=== PATIENT | male | born 1985 | race Caucasian/White ===

== ENCOUNTER 2020-09-03 13:34 | Emergency (ER) | payer MEDICAID, SELFPAY ==
[2019-12-13 09:48] VITALS: BMI 22.2
[2020-09-03 13:34] VITALS: BP 126/76; PULSE 85; RESP 16; TEMP 36.6; O2SAT 99; BMI 22.8
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
[2020-09-03 17:09] VITALS: RESP 16
== END 2020-09-03 17:10 | disposition home or self-care (01) ==
LOC: ED 16:53
PROVIDERS: Emergency Provider Emergency Medicine; PCP Family Medicine
DX: S16.1XXA Strain of muscle, fascia and tendon at neck level, initial encounter (principal); Z87.891 Personal history of nicotine dependence; V43.51XA Car driver injured in collision with sport utility vehicle in traffic accident, initial encounter
CPT/HCPCS: 72125; 99282

== ENCOUNTER 2021-03-10 23:35 | Emergency (ER) | payer MEDICAID, SELFPAY ==
[2021-03-10 23:36] VITALS: BP 125/90; PULSE 97; RESP 16; TEMP 36.7; O2SAT 99; BMI 23.6
--- NOTE | 2021-03-10 23:45 | ED.VIS.DENTA ---
HPI History of Present Illness Chief Complaint: Dental Informant: patient Narrative Narrative: Patient presents with some dental pain. He states he had a root canal on tooth in the right upper jaw on this past Wednesday about 1 week ago. It started to get sore on . It was more sore today. He did call his dentist. He was prescribed an antibiotic to take 4 times a day that he just started late today. He does not know what antibiotic it was. He presents as it still sore and has not gotten better yet. It sounds like he is only taken 1 maybe 2 doses. No fevers chills. No nausea vomiting. No trouble swallowing. Nothing specifically makes this better or worse. PFSH PFSH Home Medications naproxen 500 mg PO BID #14 tab 03/10/21 [Rx Last Taken Unknown] Allergy/AdvReac Type Severity Reaction Status Date / Time sertraline HCl [From Zoloft] AdvReac Nausea Verified 03/10/21 23:39 Social History Smoking Status: Current every day smoker tobacco type: cigarettes ROS ROS ED Constitutional Constitutional ED: Denies chills or fever(s) ENT ENT ED: Reports other Details: See history of present illness. ; Denies ear pain, rhinorrhea or sore throat Cardiovascular Cardiovascular: Denies chest pain Respiratory/Chest Respiratory/Chest: Denies cough or sputum Gastrointestinal Gastrointestinal: Denies nausea or vomiting Musculoskeletal Musculoskeletal: Denies arthralgias or myalgias Integumentary Denies rash Neurologic Neurologic: Denies headache(s) Endocrine Endocrinology: Denies polydipsia or polyuria Hematologic/Lymphatic Hematologic/Lymphatic: Denies easy bleeding or easy bruising Allergic/Immunologic Allergic/Immunologic ED: Denies urticaria EXAM Physical Exam Const Vital Signs: 03/10/21 23:36 Temperature 98.1 F Temperature Source Temporal Pulse Rate 97 Respiratory Rate 16 Blood Pressure 125/90 H Blood Pressure Mean 101 Pulse Ox 99 Oxygen Delivery Method Room Air Positive well nourished and well developed General Appearance ED: well developed and NAD; Negative for pallor HEENT HEENT Narrative: There may be some very subtle fullness of the right side of his face. This is minimal. There is no erythema. No notable tenderness. No intranasal lesion. No pain with range of motion of the eyes. He does have a newer feeling right upper jaw. He has some dental tenderness. No notable abscess or swelling in the mouth. Voice is normal. Handling secretions are normal. Negative for trauma Eyes PERRL and EOMs intact bilaterally Neck no lymphadenopathy and supple Lymph Lymphatic: no lymphadenopathy noted Chest Wall inspection of chest normal Resp normal respiratory effort Neuro Sensorium / Orientation: alert Psych mental status grossly normal Skin no rashes or lesions noted General Skin Exam: Negative for pallor MDM MDM MDM Narrative Medical decision making narrative: I explained to the patient that he just started antibiotics hours ago. This is not going to resolve quickly will take several days. There is no indication of need for drainage or imaging. I will get him nonsteroidals for discomfort. He should continue his antibiotics 4 times a day as prescribed and follow-up with his dentist. If he has further swelling, pain, trouble swallowing or speaking he should return. Discharge Plan Triage Chief Complaint: Dental ED Provider: Sunil Hamm Dx/Rx/DC Orders Clinical Impression: Pain, dental Instructions: ED Dental Pain Prescriptions: New naproxen 500 MG tablet 500 mg PO BID Qty: 14 RF: 0 Primary Care Provider: Aron Lombardi Referrals: Aron Lombardi MD [Primary Care Provider] - As Needed Activity Restrictions/Additional Instructions: Follow-up with your dentist as soon as possible for recheck. Disposition Disposition: Home, Self Care
[2021-03-10] MEDS: Naproxen 250 MG Tablet 500 MG PO (23:59)
== END 2021-03-11 | disposition home or self-care (01) ==
PROVIDERS: Emergency Provider Emergency Medicine; PCP Family Medicine; Visit Provider Emergency Medicine
DX: K08.89 Other specified disorders of teeth and supporting structures (principal); F17.210 Nicotine dependence, cigarettes, uncomplicated; Z98.818 Other dental procedure status
CPT/HCPCS: 99283

== ENCOUNTER 2021-12-11 11:01 | Emergency (ER) | payer MEDICAID, SELFPAY ==
[2021-12-11 11:02] VITALS: BP 123/97; PULSE 89; RESP 16; TEMP 36.6; O2SAT 100; BMI 24.3
--- NOTE | 2021-12-11 11:30 | EDS_ITS ---
HPI History of Present Illness Chief Complaint: Lower Extremity Injury Informant: patient Narrative Narrative: Patient present persistent worsening left knee pain in past 2 to 3 weeks. Initial injury hitting a barstool. He states he went to urgent care had an x- ray however does not know the results. Has been using Tylenol and ibuprofen last treat with ibuprofen 6 AM this morning. Symptoms worse throughout the day due to being on his feet and working. He had to leave work today. No new injuries. No paresthesias. Symptoms also worsen when he tries to sit down along the medial aspect of the anterior knee. Denies any head injuries. Denies past med history. Denies history of gastric ulcers or kidney injury. PFSH PFSH Home Medications NK 12/11/21 [History Last Taken Unknown] Allergy/AdvReac Type Severity Reaction Status Date / Time sertraline HCl [From Zoloft] AdvReac Nausea Verified 12/11/21 11:04 Surgical History History of repair of ACL Social History Smoking Status: Current every day smoker tobacco type: cigarettes ROS ROS ED Constitutional Constitutional ED: Denies chills, fever(s) or sweats Eyes Eyes: Denies change in vision ENT ENT ED: Denies dysphagia or sore throat Cardiovascular Cardiovascular: Denies chest pain, leg edema, palpitations or racing heartbeat Respiratory/Chest Respiratory/Chest: Denies cough, dyspnea or dyspnea on exertion Gastrointestinal Gastrointestinal: Denies abdominal pain, diarrhea, nausea or vomiting Genitourinary Genitourinary ED: Denies dysuria, hematuria or urinary frequency Musculoskeletal Musculoskeletal: Reports extremity pain and other Details: Left knee pain ; Denies back pain or neck pain Integumentary Denies rash or wounds Neurologic Neurologic: Denies headache(s), paresthesias or weakness EXAM Physical Exam Const Vital Signs: 12/11/21 11:02 Temperature 98 F Temperature Source Temporal Pulse Rate 89 Respiratory Rate 16 Blood Pressure 123/97 H Blood Pressure Mean 105 Pulse Ox 100 Oxygen Delivery Method Room Air Positive well nourished and well developed General Appearance ED: well developed and NAD HEENT Reports moist mucous membranes normocephalic and atraumatic Eyes PERRL, EOMs intact bilaterally and conjunctivae normal General Eye ED: Yes normal appearance of both eyes Neck no lymphadenopathy and supple General: Negative for tenderness Chest Wall Chest: Negative for tenderness Resp normal respiratory effort and normal air movement Effort and Inspection: symmetric chest movement; Negative for respiratory distress Cardio regular rate, regular rhythm and no murmurs Peripheral Pulses: pulses 2+ throughout GI normal to inspection, nondistended, normoactive bowel sounds and non-tender Palpation: Negative for guarding or rebound tenderness present Back/Spine no CVA tenderness and no thoracic nor lumbar tenderness Extremity normal to inspection Extremity Narrative: Left lower extremity negative logroll knee extensor mechanism intact. No patellar tenderness. Is tender along the medial aspect the patellar. Negative varus and valgus negative Xin's. Skin intact. No deformities. Neuro vas intact distally. General Extremety ED: Negative for edema or tenderness General Extremity: Negative for edema Neuro oriented x3 and no sensory deficits noted Sensorium / Orientation: awake and alert Skin no rashes or lesions noted and no wounds MDM MDM MDM Narrative Medical decision making narrative: Patient vital stable. There is no x-ray in the system and he does not know the results. 4 view x-ray left knee ordered for evaluation Tylenol for symptom control. 4 view x-ray left knee evaluated by myself and read by radiology shows no acute process. Minesh wrap provided. Continue Tylenol or Motrin as needed. He is given follow-up orthopedics due to persistent symptoms after 3 weeks. All questions were answered. Radiography Diagnostic Testing: Clinical Impression(s) from Imaging Studies Knee X-Ray 12/11/21 11:36 IMPRESSION: Normal x-ray examination of the knee. Electronically Signed: Alton Maldonado MD at 11:55 EDT Reading Location ID and State: [facility] / [place] , Service support , Discharge Plan Triage Chief Complaint: Lower Extremity Injury ED Provider: Gilbert Rivas Dx/Rx/DC Orders Clinical Impression: Injury of knee, left, Knee pain, left Instructions: ED Knee Pain of Uncertain Cause Prescriptions: No Action NK Primary Care Provider: Aron Lombardi Referrals: Aron Lombardi MD [Primary Care Provider] - Marcial Kwon MD [Med Staff - Active Staff] - 3-5 Days Activity Restrictions/Additional Instructions: Left knee x-ray negative. Persistent symptoms after 3 weeks. Follow-up with Dr. Kwon. Continue Tylenol and ibuprofen. Minesh wrap continue crutches at home as needed. Disposition Disposition: Home, Self Care Discharge Date/Time: 12/11/21 12:16
--- NOTE | 2021-12-11 11:36 | RAD_ITS ---
STUDY: X-RAY - LEFT KNEE REASON FOR EXAM: Male, 36 years old. Pain after fall TECHNIQUE: 4 view(s) of the knee. COMPARISON: None. FINDINGS: Normal visualized distal femur. Normal visualized proximal tibia and fibula. Normal proximal tibiofibular articulation. Normal medial femorotibial compartment. Normal lateral femorotibial compartment. Normal patellofemoral articulation. The soft tissue structures are unremarkable. RAD/Knee 4 or More Views IMPRESSION: Normal x-ray examination of the knee. Electronically Signed: Alton Maldonado MD at 11:55 EDT ,
[2021-12-11] MEDS: Acetaminophen 500 MG Tablet 1000 MG PO (11:48)
== END 2021-12-11 12:16 | disposition home or self-care (01) ==
PROVIDERS: Emergency Provider Emergency Medicine; PCP Family Medicine; Visit Provider Emergency Medicine
DX: S89.92XA Unspecified injury of left lower leg, initial encounter (principal); W22.09XA Striking against other stationary object, initial encounter; F17.210 Nicotine dependence, cigarettes, uncomplicated
CPT/HCPCS: 73564; 99283

== ENCOUNTER → 2021-12-16 | Outpatient (CLI) | payer MEDICAID, SELFPAY ==
--- NOTE | 2021-12-16 15:50 | MRI_ITS ---
STUDY: MR Knee W/O Contrast 12/16/2021 8:13 PM REASON FOR EXAM: Male, 36 years old. assess for medial meniscus tear LEFT knee TECHNIQUE: Standardized fat and water weighted pulse sequences were obtained in all 3 orthogonal planes. COMPARISON: None. FINDINGS: Normal medial meniscus. Normal hyaline cartilage of the medial femorotibial compartment. Normal medial femoral condyle and tibial plateau. Normal medial collateral ligamentous complex (MCL). Normal distal semimembranosus, gracilis and semitendinosus tendons. Normal lateral meniscus. Normal hyaline cartilage of the lateral femorotibial compartment. Normal lateral femoral condyle and tibial plateau. Normal proximal tibiofibular articulation. Normal lateral collateral (fibular) ligament. Normal popliteus tendon. Normal biceps femoris tendon. Normal anterior cruciate ligament (ACL). Normal posterior cruciate ligament (PCL). Normal congruent patellofemoral articulation. Normal hyaline cartilage of the patellofemoral compartment. There is a partial tear of the medial parapatellar retinaculum at its insertion into the patella. There is a bone bruise along the medial patella. Normal quadriceps tendon. Normal patellar tendon. Normal Hoffa''s fat pad. There is a moderate volume joint effusion. The soft tissues are unremarkable. The otherwise visualized osseous structures are unremarkable. MRI/Lower Ext Joint Only (Routine) IMPRESSION: There is a partial tear of the medial parapatellar retinaculum at its insertion into the patella. There is a bone bruise along the medial patella. Joint effusion. Electronically Signed: Rolf Woods MD at 20:18 EDT ,
== END | disposition home or self-care (01) ==
LOC: MRI 15:49
PROVIDERS: PCP Family Medicine; Visit Provider Orthopaedic Surgery Sports Medicine
DX: S83.242A Other tear of medial meniscus, current injury, left knee, initial encounter (principal); X58.XXXA Exposure to other specified factors, initial encounter
CPT/HCPCS: 73721

== ENCOUNTER 2021-12-31 09:28 | Outpatient (RCR) | payer MEDICAID, SELFPAY ==
--- NOTE | 2021-12-31 10:12 | HP.PTEVAL ---
Patient's Visit Information LIBBY PEARCE II is a 36 year old M referred to Physical Therapy by Dr. Marcial Kwon MD with a diagnosis of L patellofemoral instabillity.. Date of Evaluation: 12/31/21 Physical Therapist: Tay Tinsley, DPT, OCS, CSCS - Visit Plan Frequency: 3x /Week Duration: 4-6 Weeks Plan: 3x/week for 3-6 for .. 1/ rollout and stretch L quad and ITB and HS. 2. strength L hip and quad/vmo and progress to HEP. ice as needed. rest from aggravating activity. - Subjective L knee hit on a barstool 6 weeks ago and is painful with moving and bending since. had previously fixed l meniscus 8 yrs ago but was doing well. Now pain with cold weather or overdoing it. Pain is medial and up to 8/10 over the weekend with lifting something and was transient. Feels comfortable at rest. Sleep is Ok most of time. Not employed. 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 No numbness or tingling. No regular ex. Walking makes it feel better. Bowling is more painful and he is in a league. - Pain L knee medial Pain Intensity (Out of 10): 0 Pain Intensity Range: 0, 8 - Objective Walks normal and I into PT, steps reciprocal with c/o pain on L with WB but no antalgia. Transfers are I bed and chair. Squatting hurts L medial knee at about 30 degree flexion but can full stoop with less pain. Tender over medial pes anserine and tib femoral joint minimally. Tender lateral patella minimally. Full aROM B knees without pain. Full hip AROM outside of flex deficits. Full ankle aROM B. Tightness obvious in L HS at -35 90/90 test, B quads tight and B ITB min tight. reflexes 2/3 patella and achilles. Sterngth is 4- in B hips and L quad with some discomfort, R quad and B HS are 4+, ankles 4+. Sensation LE WNL to gross light touch. - ant drawer. - post sag. - scour. - patellar grind. - bounce home. - Balance/Special Test Scores Lower Extremity Functional Score: 52 - Goals Goal 1:: Patient able to walk and squat down without discomfort Goal Time Frame: 4-6 Weeks Goal 2:: pt I in managemnt of pain with streteches and strength ex at home Goal Time Frame: 4-6 Weeks Goal 3:: Pt feel 90% better overall and 1/10 pain at worst Goal Time Frame: 4-6 Weeks Goal 4:: [id number] Goal Time Frame: 4-6 Weeks Goal 5:: Play with kids without needing to stop Goal Time Frame: 4-6 Weeks - Rehabilitation Potential Physical Therapy Diagnosis: bone bruise and PF instability Rehabilitation Potential: Good - Anticipated Interventions Patient/Client Instruction: Educate patient on: Condition, Plan of Care For the Purpose of:: To decrease pain, To improve nutrient delivery to tissue, To improve muscle performance and motor function, To increase tolerance to activity/condition/position, To improve ability of physical actions for home/community/work/leisure Therapeutic Exercise to Include: Strength training, Flexibilty training, Passive ROM, Active ROM For the Purpose of:: To decrease pain, To increase ROM, To increase oxygenation perfusion, To improve performance and independence with ADL's, To decrease level of supervision to perform tasks Manual Therapy Techniques to Include: Passive ROM, Soft tissue mobilization For the Purpose of:: To decrease pain, To improve nutrient delivery to tissue, To improve muscle performance and motor function Cryotherapy (ice pack, ice massage): Yes For the Purpose of:: To decrease swelling/inflammation Thank you for the opportunity to evaluate your patient. For Medicare and Medicare HMO plans, please review the plan of care and approve it. It will need to be FAXED BACK to us at [phone] for Medicare purposes. For Medicare only, by signing this I certify the plan of care. Please let me know if there are questions or concerns regarding this plan of care. Physician Signature: Date:
--- NOTE | 2022-03-05 17:50 | HP.PTDCNRP_ITS ---
LIBBY PEARCE II was seen in my office for initial evaluation on 12/31/21. The following Plan of Care was established for this patient: Initial Frequency: 3x /Week Initial Duration: 4-6 Weeks Patient/Client Instruction: Educate patient on: Condition, Plan of Care For the Purpose of:: To decrease pain, To improve nutrient delivery to tissue, To improve muscle performance and motor function, To increase tolerance to activity/condition/position, To improve ability of physical actions for home/community/work/leisure Therapeutic Exercise to Include: Strength training, Flexibilty training, Passive ROM, Active ROM For the Purpose of:: To decrease pain, To increase ROM, To increase oxygenation perfusion, To improve performance and independence with ADL's, To decrease level of supervision to perform tasks Manual Therapy Techniques to Include: Passive ROM, Soft tissue mobilization For the Purpose of:: To decrease pain, To improve nutrient delivery to tissue, To improve muscle performance and motor function Cryotherapy (ice pack, ice massage): Yes For the Purpose of:: To decrease swelling/inflammation This patient was last seen in our office 12/31/21. Pertinent comments regarding their Physical therapy will appear below: Pt seen for IE and POC established and approved. Pt did not return calls to schedule appointments. At this point, it has been over 2 months and I will discontinue due to nonattendance. At this point I will be discontinuing this patient from physical therapy. I wo uld be happy to see this patient again in the future if found appropriate by the physician. Thank you! Tay Tinsley, DPT, OCS, CSCS Balance/Gait/Functional tests - Balance/Special Test Scores Lower Extremity Functional Score: 52
== END 2021-12-31 19:00 | disposition home or self-care (01) ==
LOC: PT 09:28
PROVIDERS: PCP Family Medicine; Referring Provider Orthopaedic Surgery Sports Medicine; Visit Provider Orthopaedic Surgery Sports Medicine
DX: M25.362 Other instability, left knee (principal)
CPT/HCPCS: 97110; 97161

== ENCOUNTER 2022-03-24 01:11 | Emergency (ER) | payer MEDICAID, SELFPAY ==
[2022-03-24 01:12] VITALS: BP 134/92; PULSE 85; RESP 18; TEMP 37.1; O2SAT 99; BMI 23.6
--- NOTE | 2022-03-24 01:35 | EDS_ITS ---
HPI History of Present Illness Chief Complaint: General Illness Informant: patient Narrative Narrative: Patient complains of a few different issues. 1 is that he woke up the other morning and the small and ring finger on his left hand seem numb for a while. As he moved around it got better. That is only happened 1 time. He is also been complaining that his joints both wrists elbows knees and ankles have been sore recently. He thinks has been going on for a while but may be worse recently. He denies any acute trauma. They have not been swelling or getting red. No fevers or chills. No acute trauma. He is on no medications at this time. He has no history of any rheumatologic issues. He does not seem to complain of anything matching Raynaud's syndrome. Nothing really makes this better or worse but nothing is really been tried. [facility] Medical History Instability of left patellofemoral joint Tear of medial meniscus of left knee Home Medications NK 12/11/21 [History Last Taken Unknown] Allergy/AdvReac Type Severity Reaction Status Date / Time sertraline HCl [From Zoloft] AdvReac Nausea Verified 12/22/21 10:20 Surgical History History of repair of ACL Social History Smoking Status: Current every day smoker tobacco type: cigarettes ROS ROS ED Constitutional Constitutional ED: Denies chills or fever(s) Eyes Eyes: Denies change in vision ENT ENT ED: Denies rhinorrhea or sore throat Cardiovascular Cardiovascular: Denies chest pain or palpitations Respiratory/Chest Respiratory/Chest: Denies cough or dyspnea Gastrointestinal Gastrointestinal: Denies nausea or vomiting Genitourinary Genitourinary ED: Denies hematuria Musculoskeletal Musculoskeletal: Reports arthralgias; Denies back pain, myalgias or neck pain Integumentary Denies abscess, Abrasions or rash Neurologic Neurologic: Denies headache(s), paresthesias or weakness Endocrine Endocrinology: Denies polydipsia or polyuria Hematologic/Lymphatic Hematologic/Lymphatic: Denies lymphadenopathy Allergic/Immunologic Allergic/Immunologic ED: Denies urticaria EXAM Physical Exam Narrative Exam Narrative: Patient is alert oriented no acute distress sitting comfortably in bed. HEENT shows no pallor. Mucous membranes are moist. No sinus tenderness. Eyes show no pallor or icterus. Neck free range of motion without pain. No JVD seen. Lungs are clear bilaterally Heart is regular without murmur gallop or rub. He has excellent peripheral pulses. Abdomen soft completely nontender. Extremities: No sign of swollen or red joints. Good range of motion of all his joints. No sign of infection or inflammation. He does have a positive Tinel's when I tap on the ulnar nerve near the left elbow reproducing some of the symptoms he had the other night when he woke up. This is consistent with just mild peripheral neuropathy that was transient. No erosions or breakdown of the nails. Skin: No rash. Patient awake alert appropriate no confusion. No focal numbness or tingling. Const Vital Signs: 03/24/22 01:12 03/24/22 01:17 Temperature 98.7 F Temperature Source Oral Pulse Rate 85 Respiratory Rate 18 Respiratory Effort Normal Non-Labored Respiratory Pattern Normal Blood Pressure 134/92 H Blood Pressure Mean 106 Pulse Ox 99 Oxygen Delivery Method Room Air MDM MDM MDM Narrative Medical decision making narrative: Patient presents with polyarthralgias that sound like they have been going on a while but have worsened recently. I explained to the patient that this really needs an extensive work-up that cannot be done in the emergency department. He will need rheumatologic and other testing. It is best to follow-up with his primary physician to initiate this process. I will give him a dose of Decadron here to try to calm down his symptoms. He also complained of some numbness tingling of his left ring and small finger. I think this likely was from slight neuropraxia and irritation of the ulnar nerve at the elbow while sleeping. Those symptoms are completely resolved. If he did develop fever or swollen joint weakness he should return. Discharge Plan Triage Chief Complaint: General Illness ED Provider: Sunil Hamm Dx/Rx/DC Orders Clinical Impression: Polyarthralgia, Ulnar nerve compression Instructions: ED Arthralgia Prescriptions: No Action NK Primary Care Provider: Aron Lombardi Referrals: Aron Lombardi MD [Primary Care Provider] - 3-5 Days Disposition Disposition: Home, Self Care
[2022-03-24] MEDS: dexAMETHasone 4 MG Tablet 10 MG PO (01:49)
== END 2022-03-24 01:51 | disposition home or self-care (01) ==
LOC: ED 01:48
PROVIDERS: Emergency Provider Emergency Medicine; PCP Family Medicine; Visit Provider Emergency Medicine
DX: G56.22 Lesion of ulnar nerve, left upper limb (principal); M25.531 Pain in right wrist; M25.532 Pain in left wrist; M25.521 Pain in right elbow; M25.522 Pain in left elbow; M25.561 Pain in right knee; M25.562 Pain in left knee; M25.571 Pain in right ankle and joints of right foot; M25.572 Pain in left ankle and joints of left foot; F17.210 Nicotine dependence, cigarettes, uncomplicated
CPT/HCPCS: 99283

== ENCOUNTER 2022-05-12 18:21 | Emergency (ER) | payer MEDICAID, SELFPAY ==
[2022-05-12 18:22] VITALS: BP 140/99; PULSE 88; RESP 18; TEMP 36.1; O2SAT 100; BMI 23.9
--- NOTE | 2022-05-12 18:35 | CT_ITS ---
STUDY: CT ABDOMEN AND PELVIS WITH CONTRAST REASON FOR EXAM: Male, 36 years old. abdominal pain -- IV PO Contrast RADIATION DOSAGE (If Supplied By Facility): CTDIvol = ( 12.46 ) mGy, DLP = ( 605.38 ) mGycm TECHNIQUE: Transaxial images were obtained from the dome of the diaphragm to the symphysis pubis without oral contrast. Oral and amp; IV Gastrografin and amp; 100mL Isovue-370 was administered. Sagittal and coronal images were reconstructed. Individualized dose optimization techniques were used for this CT. COMPARISON: None. FINDINGS: Minor atelectasis within the dependent portion of the lungs.. The visualized portions of the heart are within normal limits. Normal liver. Contracted thick-walled gallbladder without gallstones of uncertain significance possibly physiologic.. Normal spleen. Pancreas is normal in size and homogeneous attenuation. Is effacement of the pancreaticoduodenal fat plane and possibly mild focal acute pancreatitis is not excluded. Normal bilateral adrenal glands. Normal right kidney. Normal left kidney. Normal visualized stomach. Normal small intestine. Normal colon. No evidence for acute appendicitis Normal abdominal aorta. Normal inferior vena cava. Normal retroperitoneum. Normal urinary bladder. Mildly enlarged prostate of uncertain clinical significance Normal abdominal wall. Normal osseous structures. CT/Abdomen/Pelvis WITH Contrast IMPRESSION: Contracted thick-walled gallbladder without gallstones. If concern for gallbladder disease ultrasound recommended Effacement of the pancreaticoduodenal fat plane of uncertain significance but may be consistent with mild changes of acute pancreatitis clinical correlation recommended Electronically Signed: Aron Tafoya MD at 20:34 EDT ,
--- NOTE | 2022-05-12 18:38 | ED.VIS.GI ---
HPI HPI - GI History of Present Illness Chief Complaint: GI Bleed Detail of Chief Complaint: Rectal bleeding Informant: patient Narrative Narrative: Patient presents to the emergency department with complaint of rectal bleeding for about a week. Patient states initially he had some dark red stool and subsequently has had bright red blood per rectum. Tells me he had a colonoscopy and an EGD 1 year ago and he was told he had an ulcer. Patient is complaining of right sided lower abdomen pain. There is a family history of inflammatory bowel disease on his mother side. Patient denies any fevers. He has had some mild nausea. The stool is now somewhat liquidy and bloody. Denies eating any undercooked foods. [facility] Medical History Instability of left patellofemoral joint Tear of medial meniscus of left knee Home Medications omeprazole 40 mg capsule,delayed release 40 mg PO DAILY #14 caps 05/12/22 [Rx Last Taken Unknown] Allergy/AdvReac Type Severity Reaction Status Date / Time sertraline HCl [From Zoloft] AdvReac Nausea Verified 05/12/22 18:24 Surgical History History of repair of ACL Social History Smoking Status: Current every day smoker tobacco type: cigarettes ROS ROS ED Review of Systems ROS Unobtainable: other Constitutional Constitutional ED: Reports lethargy; Denies chills, fever(s), sweats or weight loss Eyes Eyes: Denies blurry vision, change in vision or diplopia ENT ENT ED: Denies rhinorrhea or sore throat Cardiovascular Cardiovascular: Denies chest pain, orthopnea or racing heartbeat Respiratory/Chest Respiratory/Chest: Denies cough, dyspnea, dyspnea on exertion, orthopnea or sputum Gastrointestinal Gastrointestinal: Reports abdominal pain, nausea and other Details: Bright red blood per rectum ; Denies diarrhea or vomiting Genitourinary Genitourinary ED: Denies dysuria, hematuria or urinary frequency Musculoskeletal Musculoskeletal: Denies arthralgias, back pain, myalgias or neck pain Integumentary Denies abscess, Abrasions or rash Neurologic Neurologic: Denies headache(s) or weakness Psychiatric Psychiatric: Denies anxiety, depression or suicidal thoughts Endocrine Endocrinology: Denies polydipsia, polyphagia or polyuria Hematologic/Lymphatic Hematologic/Lymphatic: Denies easy bleeding, easy bruising or lymphadenopathy Allergic/Immunologic Allergic/Immunologic ED: Denies mouth swelling, tongue swelling or urticaria EXAM Physical Exam Const Vital Signs: 05/12/22 18:22 05/12/22 19:29 Temperature 97 F L Temperature Source Temporal Pulse Rate 88 Respiratory Rate 18 Blood Pressure 140/99 H Blood Pressure Mean 112 Pulse Ox 100 99 Oxygen Delivery Method Room Air Room Air Positive well nourished and well developed General Appearance ED: well developed and NAD HEENT Reports TM's clear and moist mucous membranes normocephalic and atraumatic; Negative for trauma or tenderness Tympanic Membrane ED: Yes TM's clear Eyes PERRL and EOMs intact bilaterally General Eye ED: Negative for pale conjunctiva or scleral icterus Neck no lymphadenopathy, supple and no JVD General: Negative for tenderness Chest Wall inspection of chest normal and palpation of chest normal Chest: Negative for tenderness Resp normal respiratory effort and clear to auscultation bilaterally Effort and Inspection: Negative for respiratory distress or pain with movement Auscultation: Negative for rhonchi, wheezes or diminished lung sounds Cardio regular rate, regular rhythm, S1 normal heart sound, S2 normal heart sound and no murmurs Peripheral Pulses: pulses 2+ throughout GI normal to inspection, nondistended, normoactive bowel sounds, soft to palpation, non-distended and no masses GI Narrative: Tenderness and some guarding in the right lower quadrant. No rebound or rigidity. Rectal exam performed had small amount of brown stool that did not show any gross blood and Hemoccult will be pending. No masses palpated in the rectal vault. Back/Spine no CVA tenderness and no thoracic nor lumbar tenderness Extremity normal to inspection General Extremety ED: Negative for edema General Extremity: Negative for edema Neuro oriented x3, CN's II-XII intact bilaterally, no sensory deficits noted and gait normal Sensorium / Orientation: awake, alert, oriented to person, oriented to place and oriented to time Motor Exam: strength 5/5 throughout and strength abnormal Psych mental status grossly normal Skin no rashes or lesions noted and no wounds MDM MDM MDM Narrative Medical decision making narrative: Patient presents with rectal bleeding x1 week. IV line established. Patient also with right lower quadrant pain. CBC with differential white count of 10.1 and a hemoglobin of 14 and hematocrit of 43.6. Platelets 242. Chemistries unremarkable. Lactate was normal 1.4. CT scan of the abdomen pelvis showed a contracted thick-walled gallbladder without gallstones. There was some haziness around the pancreas that could be consistent with acute pancreatitis. Clinically the patient does not have acute pancreatitis but I did order lipase and it was normal. LFTs were normal. I also performed a gallbladder ultrasound as patient states that he has had some gallbladder issues in the past and this essentially did not show any gallstones or evidence for acute cholecystitis. I did discuss case with general surgeon Dr. Laci Savage who is patient's surgeon of record. He has that we have patient call his office and they will schedule him for possible colonoscopy and EGD. Patient will be given a prescription for omeprazole which she is supposed to be taking but has not been taking. Patient advised to return if worsening abdominal pain, persistent bleeding with clots, diaphoresis, exertional dyspnea, or condition should worsen anyway. Lab Data Attestation: I reviewed the patient's lab results. Labs: Laboratory Results - last 24 hr 05/12/22 05/12/22 05/12/22 19:15 19:15 19:15 WBC 10.1 RBC 4.80 Hgb 14.3 Hct 43.6 MCV 90.8 MCH 29.8 MCHC 32.8 RDW Std Deviation 44.5 H RDW Coeff of [place] 13.2 Plt Count 242 MPV 10.7 Immature Gran % (Auto) 0.400 Neut % (Auto) 64.2 Lymph % (Auto) 30.1 [place] % (Auto) 3.8 Eos % (Auto) 1.2 Baso % (Auto) 0.3 Absolute Neuts (auto) 6.5 Absolute Lymphs (auto) 3.03 Nucleated RBC % 0 Sodium 145 Potassium 3.4 L Chloride 112 H Carbon Dioxide 27.0 Anion Gap 6 BUN 10 Creatinine 1.15 Estim Creat Clear Calc 88.80 Est GFR (MDRD) Af Amer 92 Est GFR (MDRD) Non-Af 76 BUN/Creatinine Ratio 8.7 L Glucose 115 H Lactic Acid 1.4 Calcium 8.1 L Total Bilirubin Direct Bilirubin AST ALT Alkaline Phosphatase Total Protein Albumin Globulin Lipase Blood Type Antibody Screen 05/12/22 05/12/22 05/12/22 19:15 19:15 19:15 WBC RBC Hgb Hct MCV MCH MCHC RDW Std Deviation RDW Coeff of [place] Plt Count MPV Immature Gran % (Auto) Neut % (Auto) Lymph % (Auto) [place] % (Auto) Eos % (Auto) Baso % (Auto) Absolute Neuts (auto) Absolute Lymphs (auto) Nucleated RBC % Sodium Potassium Chloride Carbon Dioxide Anion Gap BUN Creatinine Estim Creat Clear Calc Est GFR (MDRD) Af Amer Est GFR (MDRD) Non-Af BUN/Creatinine Ratio Glucose Lactic Acid Calcium Total Bilirubin 0.60 Direct Bilirubin 0.17 AST 21 ALT 23 Alkaline Phosphatase 69 Total Protein 6.8 Albumin 3.6 Globulin 3.2 Lipase 100 Blood Type AB POSITIVE Antibody Screen NEGATIVE Radiography Diagnostic Testing: Clinical Impression(s) from Imaging Studies Abdomen/Pelvis CT 05/12/22 18:35 IMPRESSION: Contracted thick-walled gallbladder without gallstones. If concern for gallbladder disease ultrasound recommended Effacement of the pancreaticoduodenal fat plane of uncertain significance but may be consistent with mild changes of acute pancreatitis clinical correlation recommended Electronically Signed: Aron Tafoya MD at 20:34 EDT , Gallbladder Ultrasound 05/12/22 20:47 IMPRESSION: No evidence for gallstones or acute inflammation.. Tiny gallbladder polyp. If concern for acalculous cholecystitis HIDA scan with CCK stimulation recommended Electronically Signed: Aron Tafoya MD at 21:31 EDT , Discharge Plan Triage Chief Complaint: GI Bleed ED Provider: Leonidas Knutson Dx/Rx/DC Orders Clinical Impression: Acute lower gastrointestinal hemorrhage, Abdominal pain Instructions: ED Lower GI Bleeding (Stable), ED Abdominal Pain Unkn Cause Male... Prescriptions: New omeprazole 40 mg capsule,delayed release(DR/EC) 40 mg PO DAILY Qty: 14 0RF Primary Care Provider: Aron Lombardi Referrals: Aron Lombardi MD [Primary Care Provider] - Laci Savage MD [Non-Staff] - 3-5 Days Disposition Disposition: Home, Self Care
[2022-05-12 19:29] VITALS: O2SAT 99
[2022-05-12 19:29] LABS: Absolute Lymphocyte Count 3.03 X10^3/uL (0.83-4.51); Absolute Neutrophil Count 6.5 X10^3/uL (2.0-7.7); Basophil# 0.03 X10^3/uL; Basophil% 0.3 % (0-1); Eosinophil# 0.12 X10^3/uL; Eosinophils% 1.2 % (0-5); Hematocrit 43.6 % (40-54); Hemoglobin 14.3 g/dL (13.0-16.5); Lymphocyte # 3.03 X10^3/ul (0.83-4.51); Lymphocyte % 30.1 % (19-41); Mean Corp Hgb Conc 32.8 g/dL (32-36); Mean Corpuscular Hgb 29.8 pg (27.0-32.0); Mean Corpuscular Volume 90.8 fL (80-94); Mean Platelet Vol. 10.7 fl (6.2-12.0); Monocyte# 0.38 X10^3/uL; Monocyte% 3.8 % (0-10); NRBC Flagged by Analyzer 0 % (0-5); Neutrophil # 6.48 X10^3/uL (2.7-7.7); Neutrophil % 64.2 % (47-70); Platelet Count 242 K/mm3 (150-450); RBC Distribution Width CV 13.2 % (11.6-14.6); RBC Distribution Width SD 44.5 fl (35.1-43.9); White Blood Count 10.1 K/mm3 (4.4-11.0)
[2022-05-12] MEDS: 0.9% Normal Saline 1,000 ML 125 ML IV (19:36)
[2022-05-12 19:56] LABS: Lactic Acid 1.4 mmol/L (0.4-1.9)
[2022-05-12 20:00] LABS: Anion Gap 6 (5-15); BUN 10 mg/dL (7-18); BUN/Creat Ratio 8.7 RATIO (10-20); Calcium,Total 8.1 mg/dL (8.5-10.1); Chloride 112 mmol/L (98-107); Creatinine, Serum 1.15 mg/dL (0.70-1.30); EST Glomerular Filtration Rate 76 mL/min (>60); Est Glom Filt Rate - Afr Amer 92 mL/min (>60); Glucose 115 mg/dL (74-106); Potassium 3.4 mmol/L (3.5-5.1); Sodium Level 145 mmol/L (136-145)
--- NOTE | 2022-05-12 20:47 | US_ITS ---
STUDY: ABDOMINAL ULTRASOUND - RIGHT UPPER QUADRANT REASON FOR VISIT: Male, 36 years old abdominal pain TECHNIQUE: Ultrasound evaluation of the right upper quadrant was performed with real-time and static arroyo-scale imaging. TECHNICAL QUALITY: Adequate. COMPARISON: None. FINDINGS: Liver: The liver measures 15.01 cm. There is normal echogenicity of the liver. The bile ducts are within normal limits. There is hepatic color flow. The direction of portal flow is hepatopetal. There is no demonstrated mass lesion. Gallbladder: Normal distended gallbladder. The gallbladder wall measures mm. There is a negative sonographic Rivera''s sign. There is no pericholecystic fluid. There are no gallstones. There is a tiny polyp. Common Bile Duct (C.B.D.): The common bile duct measures mm. Pancreas: Normal size of the head, body and tail of the pancreas. There is normal echogenicity of the pancreas. There is no demonstrated pancreatic mass or cyst. Right Kidney: Normal size of the right kidney. The right kidney measures 10.6 x 4.1 x 5.4 cm. Normal renal cortex. The right cortex measures 1.5 cm. There is no demonstrated renal mass or cyst. There is no right hydronephrosis. US/Gallbladder IMPRESSION: No evidence for gallstones or acute inflammation.. Tiny gallbladder polyp. If concern for acalculous cholecystitis HIDA scan with CCK stimulation recommended Electronically Signed: Aron Tafoya MD at 21:31 EDT ,
[2022-05-12 21:32] LABS: Lipase 100 U/L (73-393)
[2022-05-12 21:56] LABS: AST(SGOT) 21 U/L (15-37); Alanine Aminotransfer ALT/SGPT 23 U/L (16-61); Albumin, Serum 3.6 g/dL (3.2-5.0); Alkaline Phosphatase 69 U/L (45-117); Bilirubin, Direct 0.17 mg/dL (0.00-0.30); Globulin 3.2 g/dL (2.2-4.2); Protein, Total 6.8 g/dL (6.4-8.2)
[2022-05-12 22:48] VITALS: O2SAT 99
== END 2022-05-12 22:53 | disposition home or self-care (01) ==
PROVIDERS: Emergency Provider Emergency Medicine; PCP Family Medicine; Visit Provider Emergency Medicine
DX: K92.2 Gastrointestinal hemorrhage, unspecified (principal); R10.9 Unspecified abdominal pain; F17.210 Nicotine dependence, cigarettes, uncomplicated
CPT/HCPCS: 74177; 76705; 80048; 80076; 82274; 83605; 83690; 85025; 86850; 86900; 86901; 96360; 96361; 99283; J7030; Q9967; A4216